=== PATIENT | female | born 1995 | race Two or more races ===

== ENCOUNTER 2017-10-19 16:29 | Emergency (ER) | payer OTHER ==
[~2017-10-19] VITALS: Ht 162.6 cm; Wt 81.6 kg
[~2017-10-19 16:29] MED LIST: NITR100C62 PO; TRAM50TA PO
--- NOTE | 2017-10-19 17:17 | RAD ---
CT scan of the head without contrast 10/19/2017 Clinical History: Fall with head trauma. Technique: Unenhanced, contiguous, 5 mm axial sections were obtained through the head. Findings: The ventricles and sulci are within normal limits in size and configuration. No focal area of abnormal attenuation is seen involving the brain parenchyma. No extra-axial fluid collection is seen. No skull fracture is seen. Impression: Negative study. Electronically signed by: Eliu Villasenor MD (10/19/2017 5:14 PM) [facility]
[2017-10-19] MEDS ORDERED: IBUP-1007 PO (17:34)
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
[2017-10-19 17:41] VITALS: BP 120/67
== END 2017-10-19 17:42 | disposition home or self-care (01) ==
LOC: ER 16:29
DX: S09.90XA Unspecified injury of head, initial encounter (principal); W01.198A Fall on same level from slipping, tripping and stumbling with subsequent striking against other object, initial encounter; Y93.I9 Activity, other involving external motion; Y99.8 Other external cause status; Y92.89 Other specified places as the place of occurrence of the external cause
CPT/HCPCS: 70450; 99284-25